=== PATIENT | female | born 1995 | race Caucasian/White ===

== ENCOUNTER → 2019-01-23 19:06 | Observation (INO) ==
[2019-01-23 17:32] LABS: Bilirubin,Urine Small (Negative); Blood,Urine Small (Negative); Clarity,Urine Cloudy (Clear); Color,Urine Dark Yellow (Yellow); Glucose,Urine (UA) Normal (Normal); Ketones,Urine >=160 mg/dL (Negative); Leukocyte Esterase,Urine Small (Negative); Nitrite,Urine Negative (Negative); Protein,Urine 30 mg/dL (Neg-Trace); Specific Gravity,Urine > 1.030 (1.010-1.025); Urobilinogen,Urine Normal (Normal)
[2019-01-23 17:38] LABS: Amphetamine Screen,Urine Negative ng/mL (Cutoff=1000); Barbiturate Screen,Urine Negative ng/mL (Cutoff=200); Benzodiazepines Screen,Urine Negative ng/mL (Cutoff=200); Cannabinoid Screen,Urine Positive ng/mL (Cutoff = 50); Cocaine Screen,Urine Negative ng/mL (Cutoff= 300); Opiate Screen,Urine Negative ng/mL (Cutoff=300); Phencyclidine Screen,Urine Negative ng/mL (Cutoff=25)
[2019-01-23 17:47] LABS: Mucus,Urine Many (Few); Squamous Epithelial Cell,Urine Many per lpf (None-Few)
[2019-01-23 17:49] LABS: Bacteria,Urine Moderate per hpf (None-Few); RBC,Urine 0-3 per hpf (0-3)
[2019-01-23 17:50] LABS: Amorphous Sediment,Urine Few (Few)
== END | disposition home or self-care (01) ==
LOC: 1NENULAB
PROVIDERS: ADMIT Obstetrics & Gynecology; ATTEND Obstetrics & Gynecology

== ENCOUNTER 2019-04-01 21:42 | Observation (INO) ==
[2019-04-01] MEDS ORDERED: MOM Conc 10 ML UD.LIQ PO ONE (21:56)
[2019-04-01 22:24] LABS: Bilirubin,Urine Negative (Negative); Blood,Urine Small (Negative); Clarity,Urine Cloudy (Clear); Color,Urine Yellow (Yellow); Glucose,Urine (UA) Normal (Normal); Ketones,Urine 15 mg/dL (Negative); Leukocyte Esterase,Urine Moderate (Negative); Nitrite,Urine Negative (Negative); PH,Urine 6.5 pH Units (5.0-8.0); Protein,Urine 30 mg/dL (Neg-Trace); Specific Gravity,Urine 1.029 (1.010-1.025); Urobilinogen,Urine Normal (Normal)
[2019-04-01 22:29] LABS: Bacteria,Urine Few per hpf (None-Few); Squamous Epithelial Cell,Urine Many per lpf (None-Few)
[2019-04-01 22:43] LABS: Amphetamine Screen,Urine Negative ng/mL (Cutoff=1000); Barbiturate Screen,Urine Negative ng/mL (Cutoff=200); Benzodiazepines Screen,Urine Negative ng/mL (Cutoff=200); Cannabinoid Screen,Urine Positive ng/mL (Cutoff = 50); Cocaine Screen,Urine Negative ng/mL (Cutoff= 300); Opiate Screen,Urine Negative ng/mL (Cutoff=300); Phencyclidine Screen,Urine Negative ng/mL (Cutoff=25)
[2019-04-01 22:50] LABS: Mucus,Urine Few per lpf (Few)
== END 2019-04-01 23:31 | disposition home or self-care (01) ==
LOC: 1NENULAB
PROVIDERS: ADMIT Advanced Practice Midwife; ATTEND Advanced Practice Midwife

== ENCOUNTER → 2019-04-05 15:35 | Observation (INO) ==
[2019-04-03 17:28] LABS: Bilirubin,Urine Small (Negative); Blood,Urine Negative (Negative); Clarity,Urine Clear (Clear); Color,Urine Yellow (Yellow); Glucose,Urine (UA) Normal (Normal); Ketones,Urine >=160 mg/dL (Negative); Leukocyte Esterase,Urine Trace (Negative); Nitrite,Urine Negative (Negative); PH,Urine 6.5 pH Units (5.0-8.0); Protein,Urine 100 mg/dL (Neg-Trace); Specific Gravity,Urine >= 1.030 (1.010-1.025); Urobilinogen,Urine Normal (Normal)
[2019-04-03 17:32] LABS: Amphetamine Screen,Urine Negative ng/mL (Cutoff=1000); Barbiturate Screen,Urine Negative ng/mL (Cutoff=200); Benzodiazepines Screen,Urine Negative ng/mL (Cutoff=200); Cannabinoid Screen,Urine Positive ng/mL (Cutoff = 50); Cocaine Screen,Urine Negative ng/mL (Cutoff= 300); Opiate Screen,Urine Negative ng/mL (Cutoff=300); Phencyclidine Screen,Urine Negative ng/mL (Cutoff=25)
[2019-04-03 17:35] LABS: Bacteria,Urine Many per hpf (None-Few); Squamous Epithelial Cell,Urine Many per lpf (None-Few)
[2019-04-03 17:37] LABS: Basophils % 0.2 %; Eosinophils % 0.1 %; Hematocrit 33.2 % (35.3-44.9); Hemoglobin 11.1 g/dL (11.5-15.4); Immature Granulocytes % 0.5 % (0-4); Lymphocytes # 1.2 K/mcL (0.6-4.6); Lymphocytes % 10.5 %; Mean Corpuscular HGB Conc 33.4 g/dL (31.6-35.5); Mean Corpuscular Hemoglobin 29.4 pg (28.0-33.3); Mean Corpuscular Volume 87.8 fL (83.0-100.0); Mean Platelet Volume 11.4 fL (9.4-12.4); Monocytes # 0.7 K/mcL (0.0-1.3); Monocytes % 6.3 %; Neutrophils # 9.6 K/mcL (1.6-8.9); Platelet Count 216 K/mcL (140-400); Red Blood Count 3.78 M/mcL (3.82-4.97); Segmented Neutrophils % 82.4 %; White Blood Count 11.6 K/mcL (4.3-11.1)
[2019-04-03] MEDS: Betamethasone Acet/SodPhos 30 MG/5 ML VIAL IM SCH (17:41)
[2019-04-03 17:42] LABS: RBC,Urine 0-3 per hpf (0-3)
[2019-04-03 17:58] LABS: Alanine Aminotransferase 13 Units/L (7-52); Albumin 3.7 g/dL (3.5-5.7); Albumin/Globulin Ratio 1.3 (1.1-2.2); Alkaline Phosphatase 128 Units/L (34-104); Aspartate Amino Transferase 20 Units/L (13-39); BUN/Creatinine Ratio 11 (6-26); Bilirubin,Total 0.6 mg/dL (0.3-1.0); Blood Urea Nitrogen 11 mg/dL (6-20); Calcium 8.7 mg/dL (8.6-10.3); Carbon Dioxide 18 mEq/L (23-29); Chloride 103 mEq/L (98-107); Globulin 2.8 g/dL (2.4-3.5); Glucose 68 mg/dL (70-105); Osmolality,Calculated 282 (280-300); Potassium 4.1 mEq/L (3.5-5.1); Sodium 137 mEq/L (136-145); Total Protein 6.5 g/dL (6.4-8.9); eGFR For African Americans > 60 (> 60); eGFR For Non-African Americans > 60 (> 60)
[2019-04-04] MEDS: NIFEdipine 10 MG CAPSULE PO SCH ×5 (00:11→23:47)
[2019-04-04] MEDS: Acetaminophen IV 1,000 MG/100 ML INFUS..BTL IVPB SCH ×3 (00:11→12:13)
[2019-04-04] MEDS: Ringers Solution, Lactated 1,000 ML IVC SCH ×3 (00:11→19:41)
[2019-04-04] MEDS: *HR* HYDROmorphone (PF) 1 MG/ML SYRINGE IVP PRN ×5 (05:59→23:48)
[2019-04-04] MEDS: Morphine Sulfate 2 MG/ML SYRINGE IVP PRN ×3 (12:11→18:56)
[2019-04-04] MEDS: Ondansetron 4 MG/2 ML VIAL IVP PRN ×2 (12:12→19:39)
[2019-04-04] MEDS: *HR* Promethazine 25 MG/ML VIAL IVP PRN (15:38)
[2019-04-04] MEDS: Betamethasone Acet/SodPhos 30 MG/5 ML VIAL IM SCH (17:11)
[2019-04-04 17:56] LABS: Bilirubin,Urine Negative (Negative); Blood,Urine Negative (Negative); Clarity,Urine Clear (Clear); Color,Urine Yellow (Yellow); Glucose,Urine (UA) Normal (Normal); Ketones,Urine >=160 mg/dL (Negative); Leukocyte Esterase,Urine Negative (Negative); Nitrite,Urine Negative (Negative); Protein,Urine Negative (Neg-Trace); Specific Gravity,Urine 1.015 (1.010-1.025); Urobilinogen,Urine Normal (Normal)
[2019-04-05] MEDS: *HR* Promethazine 25 MG/ML VIAL IVP PRN (02:01)
[2019-04-05] MEDS: Morphine Sulfate 2 MG/ML SYRINGE IVP PRN (02:02)
[2019-04-05] MEDS: Ringers Solution, Lactated 1,000 ML IVC SCH ×2 (06:22→12:20)
[2019-04-05] MEDS: NIFEdipine 10 MG CAPSULE PO SCH (06:25)
[2019-04-05] MEDS: *HR* HYDROmorphone (PF) 1 MG/ML SYRINGE IVP PRN (06:31)
[~2019-04-05 15:35] MED LIST: *HR* HYDROmorphone (PF) 1 MG/ML SYRINGE IVP PRN; *HR* HYDROmorphone (PF) 1 MG/ML SYRINGE ONE; *HR* OxyCODONE Immed Rel 5 MG TABLET PO ONE; Acetaminophen IV 1,000 MG/100 ML INFUS..BTL IVPB ONE; GI Cocktail 40 ML EACH PO ONE; NIFEdipine 10 MG CAPSULE PO ONE; Ringers Solution, Lactated 1,000 ML ONE; Simethicone 80 MG TAB.CHEW PO PRN; hydrOXYzine pamoate 25 MG CAPSULE PO PRN
== END | disposition home or self-care (01) ==
LOC: 1NENULAB
PROVIDERS: ADMIT Registered Nurse; ATTEND Registered Nurse

== ENCOUNTER 2019-04-05 15:38 | Observation (INO) ==
[2019-04-05] MEDS ORDERED: 0.9 % Sodium Chloride 1,000 ML IVC ONE ×2 (16:26→17:06)
[2019-04-05 16:54] LABS: Bilirubin,Urine Negative (Negative); Blood,Urine Negative (Negative); Clarity,Urine Clear (Clear); Color,Urine Yellow (Yellow); Glucose,Urine (UA) Normal (Normal); Ketones,Urine 80 mg/dL (Negative); Leukocyte Esterase,Urine Negative (Negative); Nitrite,Urine Negative (Negative); PH,Urine 6.5 pH Units (5.0-8.0); Protein,Urine Negative (Neg-Trace); Specific Gravity,Urine 1.014 (1.010-1.025); Urobilinogen,Urine Normal (Normal)
[2019-04-05] MEDS ORDERED: *HR* FentaNYL (PF) 100 MCG/2 ML VIAL IVP STA (18:11)
[2019-04-05 21:07] LABS: Basophils % 0.2 %; Hematocrit 27.9 % (35.3-44.9); Immature Granulocytes % 1.9 % (0-4); Lymphocytes # 0.8 K/mcL (0.6-4.6); Lymphocytes % 6.9 %; Mean Corpuscular HGB Conc 33.7 g/dL (31.6-35.5); Mean Corpuscular Hemoglobin 29.5 pg (28.0-33.3); Mean Corpuscular Volume 87.5 fL (83.0-100.0); Mean Platelet Volume 10.2 fL (9.4-12.4); Monocytes # 0.9 K/mcL (0.0-1.3); Monocytes % 7.8 %; Neutrophils # 9.7 K/mcL (1.6-8.9); Platelet Count 188 K/mcL (140-400); Red Blood Count 3.19 M/mcL (3.82-4.97); Segmented Neutrophils % 83.2 %; White Blood Count 11.7 K/mcL (4.3-11.1)
[2019-04-05 21:13] LABS: Hemoglobin 9.4 g/dL (11.5-15.4)
[2019-04-05 21:26] LABS: BUN/Creatinine Ratio 9 (6-26); Blood Urea Nitrogen 7 mg/dL (6-20); Calcium 8.2 mg/dL (8.6-10.3); Carbon Dioxide 18 mEq/L (23-29); Chloride 107 mEq/L (98-107); Glucose 89 mg/dL (70-105); Osmolality,Calculated 283 (280-300); Potassium 4.2 mEq/L (3.5-5.1); Sodium 138 mEq/L (136-145); eGFR For African Americans > 60 (> 60); eGFR For Non-African Americans > 60 (> 60)
[2019-04-05] MEDS: Ondansetron 4 MG/2 ML VIAL IVP PRN (22:06)
[2019-04-05] MEDS: Ringers Solution, Lactated 1,000 ML IVC SCH (22:06)
[2019-04-05] MEDS ORDERED: *HR* Meperidine 50 MG/ML SYRINGE IVP ONE (22:15)
[2019-04-06] MEDS ORDERED: *HR* Promethazine 25 MG/ML VIAL IVP PRN (02:04)
[2019-04-06] MEDS: *HR* HYDROmorphone (PF) 1 MG/ML SYRINGE IVP PRN ×2 (02:07→08:21)
[2019-04-06] MEDS: Ondansetron 4 MG/2 ML VIAL IVP PRN ×2 (06:51→14:07)
[2019-04-06] MEDS: Ringers Solution, Lactated 1,000 ML IVC SCH ×2 (06:52→14:57)
[2019-04-06] MEDS ORDERED: *HR* OxyCODONE Immed Rel 5 MG TABLET PO PRN (08:53)
[2019-04-06] MEDS ORDERED: Ipratropium/Albuterol Neb 3 ML IH PRN (14:56)
[2019-04-06] MEDS ORDERED: Dextromethorphan Polistrx(12h) 30 MG/5 ML UDC PO PRN (14:57)
[2019-04-06 15:45] VITALS: BP 104/65
[2019-04-10 18:42] LABS: Calculi Mass 8 mg
== END 2019-04-06 19:19 | disposition home or self-care (01) ==
LOC: EMEROOARM 15:38 → 1NENUOBS 15:38
PROVIDERS: ADMIT Obstetrics & Gynecology; ATTEND Obstetrics & Gynecology

== ENCOUNTER 2019-05-06 13:28 | Inpatient (IN) ==
[~2019-05-06 13:28] MED LIST changes: +*HR* FentaNYL (PF) 100 MCG/2 ML VIAL IVP PRN; -*HR* HYDROmorphone (PF) 1 MG/ML SYRINGE IVP PRN; -*HR* HYDROmorphone (PF) 1 MG/ML SYRINGE ONE; -*HR* OxyCODONE Immed Rel 5 MG TABLET PO ONE; -Acetaminophen IV 1,000 MG/100 ML INFUS..BTL IVPB ONE; +Azithromycin 500 MG in 0.9 % Sodium Chloride 250 ML IVPB ONE; +Famotidine 20 MG/2 ML VIAL IVP PRN; -GI Cocktail 40 ML EACH PO ONE; +Metoclopramide 10 MG/2 ML VIAL IVP PRN; -NIFEdipine 10 MG CAPSULE PO ONE; +Naloxone 0.4 MG/ML INJ IVP PRN; +Ondansetron 4 MG/2 ML VIAL IVP PRN; -Ringers Solution, Lactated 1,000 ML ONE; -Simethicone 80 MG TAB.CHEW PO PRN; -hydrOXYzine pamoate 25 MG CAPSULE PO PRN
[2019-05-06] MEDS ORDERED: Ringers Solution, Lactated 1,000 ML IVC SCH (13:30)
[2019-05-06] MEDS ORDERED: Oxytocin 20 units/ LR 1000 mL 20 UNIT/1,000 ML BAG IVC SCH ×2 (13:30→22:00)
[2019-05-06] MEDS ORDERED: Ringers Solution, Lactated 1,000 ML ONE (13:30)
[2019-05-06 13:44] LABS: Basophils % 0.2 %; Eosinophils % 0.4 %; Hematocrit 38.3 % (35.3-44.9); Hemoglobin 12.4 g/dL (11.5-15.4); Immature Granulocytes % 0.5 % (0-4); Lymphocytes # 1.9 K/mcL (0.6-4.6); Lymphocytes % 16.7 %; Mean Corpuscular HGB Conc 32.4 g/dL (31.6-35.5); Mean Corpuscular Hemoglobin 28.1 pg (28.0-33.3); Mean Corpuscular Volume 86.8 fL (83.0-100.0); Mean Platelet Volume 11.1 fL (9.4-12.4); Monocytes # 0.6 K/mcL (0.0-1.3); Monocytes % 5.2 %; Neutrophils # 8.7 K/mcL (1.6-8.9); Platelet Count 248 K/mcL (140-400); Red Blood Count 4.41 M/mcL (3.82-4.97); White Blood Count 11.4 K/mcL (4.3-11.1)
[2019-05-06] MEDS ORDERED: Ondansetron 4 MG/2 ML VIAL IVP PRN (13:48)
[2019-05-06] MEDS ORDERED: Naloxone 0.4 MG/ML INJ IVP PRN (13:48)
[2019-05-06] MEDS ORDERED: Ropivacaine/PF 0.2% 20 ML VIAL EP ONE (13:48)
[2019-05-06] MEDS ORDERED: *HR* FentaNYL (PF) 100 MCG/2 ML VIAL EP ONE (13:48)
[2019-05-06] MEDS ORDERED: EPHEDrine 50 MG/ML VIAL IVP PRN (13:48)
[2019-05-06] MEDS ORDERED: Epidural Premix (fent/bupiv) 110 ML EP ONE (13:50)
[2019-05-06] MEDS ORDERED: *HR* FentaNYL (PF) 100 MCG/2 ML VIAL ONE (13:51)
[2019-05-06] MEDS ORDERED: Epidural Premix (fent/bupiv) 110 ML EP SCH (14:00)
[2019-05-06 16:29] LABS: Amphetamine Screen,Urine Negative ng/mL (Cutoff=1000); Barbiturate Screen,Urine Negative ng/mL (Cutoff=200); Benzodiazepines Screen,Urine Negative ng/mL (Cutoff=200); Cannabinoid Screen,Urine Positive ng/mL (Cutoff = 50); Cocaine Screen,Urine Negative ng/mL (Cutoff= 300); Opiate Screen,Urine Negative ng/mL (Cutoff=300); Phencyclidine Screen,Urine Negative ng/mL (Cutoff=25)
[2019-05-06] MEDS ORDERED: Oxytocin 20 units/ LR 1000 mL 20 UNIT/1,000 ML BAG IVC ONE (22:00)
[2019-05-06] MEDS ORDERED: Measles/Mumps/Rubella Vacc 0.5 ML VIAL SQ PRN (22:00)
[2019-05-06] MEDS ORDERED: Benzocaine/Menthol 56 GM AEROSOL SPRAY TP PRN (22:00)
[2019-05-07] MEDS ORDERED: Lanolin 7 G OINT...G. TP PRN (00:25)
[2019-05-07] MEDS: Ibuprofen 600 MG TABLET PO PRN ×3 (00:57→20:58)
[2019-05-07] MEDS: Prenatal Vit/FA 1 EACH TABLET PO SCH (07:45)
[2019-05-07] MEDS: Acetaminophen 325 MG TABLET PO PRN ×2 (13:14→23:29)
[2019-05-08] MEDS: Ibuprofen 600 MG TABLET PO PRN ×2 (04:04→12:00)
[2019-05-08 07:37] VITALS: BP 95/54
[2019-05-08] MEDS: Prenatal Vit/FA 1 EACH TABLET PO SCH (07:45)
== END 2019-05-08 17:10 | disposition home or self-care (01) | DRG 560 ==
LOC: 1NENULAB → 1NENUOBS 21:43
PROVIDERS: ADMIT Obstetrics & Gynecology; ATTEND Obstetrics & Gynecology